=== PATIENT | female | born 1940 | race Caucasian/White ===

== ENCOUNTER 2022-10-18 16:53 | Emergency (ER) | payer OTHER ==
[~2022-10-18] VITALS: Ht 160 cm; Wt 69.0 kg
[2022-10-18 21:37] VITALS: BP 138/59
== END 2022-10-18 21:52 | disposition home or self-care (01) ==
LOC: EDBD 16:53 → ER 16:53
DX: M25.552 Pain in left hip (principal); I10 Essential (primary) hypertension; Z98.890 Other specified postprocedural states; Z88.0 Allergy status to penicillin
CPT/HCPCS: 73502